=== PATIENT | female | born 1955 | race Caucasian/White ===

== ENCOUNTER 2019-10-17 10:50 | Inpatient (IN) | payer OTHER, MEDICAID ==
[~2019-10-17] VITALS: Ht 157.5 cm; Wt 103.4 kg
[2019-10-17 10:50] VITALS: BP_SYST 137
--- NOTE | 2019-10-17 10:50 | NUR ---
BROUGHT IN BY BLS AND PLACED IN BED #2 AND TRIAGED. REPORT GIVEN TO JORGE
--- NOTE | 2019-10-17 11:00 | NUR ---
Patient is awake, alert, and oriented x4. Patient reports she was feeling hypoglycemic earlier today and called 911. Patient was given glucose in the field and now feels better, her only complaint is that she feels drunk, denies nausea and pain.
--- NOTE | 2019-10-17 11:05 | NUR ---
ER Dr. Greenberg at bedside examining patient.
[2019-10-17 11:32] LABS: HEMATOCRIT 35.4 % (36-48); HEMOGLOBIN 11.4 g/dL (12.0-16.0); MEAN CORPUSCULAR HEMOGLOBIN 28 pg (27-31); MEAN CORPUSCULAR HGB CONC 32 % (32-36); MEAN CORPUSCULAR VOLUME 87 fL (79.0-98.0); PLATELET COUNT (AUTO) 140 K/uL (130-430); RED BLOOD CELL COUNT(AUTO) 4.09 MIL/uL (4.2-6.2); RED CELL DISTRIBUTION WIDTH 14.4 % (9.0-15.0)
[2019-10-17 11:44] LABS: CALCIUM 8.1 mg/dL (8.4-11.0); CREATININE 3.98 mg/dL (0.55-1.30); POTASSIUM 3.8 mmol/L (3.5-5.1)
[2019-10-17 11:49] LABS: ATYPICAL LYMPHOCYTES % 0 % (0-0); BAND % (MANUAL) 0 % (0-6); LYMPHOCYTES % (MANUAL) 31 % (20-46); MONOCYTES % (MANUAL) 10 % (0-11)
[2019-10-17 11:50] LABS: BASOPHILS % (MANUAL) 0 % (0-2); EOSINOPHILS % (MANUAL) 1 % (0-7)
--- NOTE | 2019-10-17 11:55 | NUR ---
Accucheck 159
[2019-10-17 12:00] LABS: ALBUMIN 2.6 g/dL (3.4-4.8); TOTAL BILIRUBIN 0.2 mg/dL (0.0-1.0)
--- NOTE | 2019-10-17 12:07 | NUR ---
Pt taken to CT
[2019-10-17] MEDS ORDERED: CYCL-10 PO (15:51)
[2019-10-17] MEDS ORDERED: HYDR100T25 PO (15:51)
[2019-10-17] MEDS ORDERED: METO-290 PO (15:51)
[2019-10-17] MEDS ORDERED: OMEP20CA11 PO (15:51)
[2019-10-17] MEDS ORDERED: FERR325T30 PO (15:51)
[2019-10-17] MEDS ORDERED: DIPH25CA83 PO (15:51)
[2019-10-17] MEDS ORDERED: ACET-284 PO (15:51)
[2019-10-17] MEDS ORDERED: LEVO25TA7 PO (15:51)
[2019-10-17] MEDS ORDERED: SSREG SUBCUT (15:51)
[2019-10-17] MEDS ORDERED: INSU100V9 SQ ×2 (15:51)
[2019-10-17] MEDS ORDERED: GLIP10TA11 PO (15:51)
[2019-10-17] MEDS ORDERED: CAT.1 PO (15:51)
[2019-10-17] MEDS ORDERED: DOCU250C14 PO (15:51)
[2019-10-17] MEDS ORDERED: NOR10 PO (15:51)
[2019-10-17] MEDS ORDERED: CALC-1263 PO (15:51)
[2019-10-17] MEDS ORDERED: TRAM100T34 PO (15:51)
[2019-10-17] MEDS ORDERED: LORA-258 PO (15:51)
[2019-10-17] MEDS ORDERED: VIS25 PO (15:51)
[2019-10-17] MEDS ORDERED: FENO48TA4 PO (15:51)
[2019-10-17] MEDS ORDERED: GABA-531 PO (15:51)
[2019-10-17] MEDS ORDERED: ALEN10TA7 PO (15:51)
--- NOTE | 2019-10-17 15:51 | NUR ---
Medication reconciliation completed with information provided by [facility]. Any prior medication reconciliation on file was reviewed and corrected.
--- NOTE | 2019-10-17 15:57 | NUR ---
Patient will be admitted to care of Dr. Baker. Admitted to telemetry unit. Waiting for room assignment. Belongings list completed. Complete and up to date summary report printed. SBAR report to be given at bedside with opportunity for questions.
[2019-10-17] MEDS ORDERED: NACL 0.9% 1,000 ML IV ONE (16:00)
--- NOTE | 2019-10-17 16:35 | NUR ---
Transfer to [facility] via ACLS protocol. Licensed nurse present. IV present no signs or symptoms of infiltration.
[2019-10-17 16:36] VITALS: BP_SYST 155
--- NOTE | 2019-10-17 16:36 | NUR ---
Admission: Received from ER on a gurney with the diagnosis of Elevated troponin and Hypoglycemia. Patient stated she feels weak to ambulate from gurney to bed. Oriented to room, call light within reach.
--- NOTE | 2019-10-17 16:38 | NUR ---
CONSULTATION PAGED REASON FOR CONSULTATION:HYPOGLYCEMIA WAS CONSULT CALLED?Y PERSON WHO WAS NOTIFIED:GABBI CONSULTING PHYSICIAN:EDIE TURK GAS CUTTER SPECIALTY:NEPHROLOGY GAS CUTTER PHONE NUMBER:[phone] ORDERING PHYSICIAN:MARLY BURNETTE
--- NOTE | 2019-10-17 16:40 | NUR ---
CONSULTATION PAGED REASON FOR CONSULTATION:ELEVATED TROPONIN WAS CONSULT CALLED?Y PERSON WHO WAS NOTIFIED:INA CONSULTING PHYSICIAN:CATHY BURNETTE MUSIC ORCHESTRATOR SPECIALTY:CARDIO MUSIC ORCHESTRATOR PHONE NUMBER:[phone] ORDERING PHYSICIAN:MARLY BURNETTE
--- NOTE | 2019-10-17 17:00 | NUR ---
INITIAL NOTE INITIAL NOTE RECEIVED PT IN BED, NO S/S OF DISTRESS OR SOB NOTED, PT HAS NO C/O PAIN AT THIS TIME, PT IN STABLE CONDITION, PT AAOX4, VERBAL. BED AT LOWEST POSITION, CALL LIGHT WITHIN REACH, WILL CONTINUE TO MONITOR PT FOR ANY CHANGES. FALL AND SAFETY PRECAUTIONS IN PLACE. PT HAS AN IV CATHETER, FLUSHES AND PATENT, SALINE LOCK.
[2019-10-17] MEDS ORDERED: NACL 0.9% 1,000 ML IV SCH (17:18)
[2019-10-17] MEDS ORDERED: ACETAMINOPHEN 325 MG TABLET PO PRN ×2 (17:30→21:15)
[2019-10-17] MEDS ORDERED: INSULIN REGULAR, HUMAN 100 UNITS/ML, 10 ML VIAL (humuLIN R) SUBCUT PRN (17:30)
[2019-10-17] MEDS ORDERED: amLODIPine BESYLATE 10 MG TABLET PO ONE (17:30)
[2019-10-17] MEDS ORDERED: ZOLPIDEM TARTRATE 5 MG TABLET PO PRN (17:30)
[2019-10-17] MEDS ORDERED: D5W 1,000 ML IV PRN ×2 (17:49→21:09)
[2019-10-17] MEDS ORDERED: DEXTROSE 50% JECT 50 ML DISP.SYRIN IVP PRN ×2 (18:00→21:15)
[2019-10-17] MEDS ORDERED: GLUCOSE 15 GM GEL (in 37.5 GM TUBE) PO PRN ×2 (18:00→21:15)
--- NOTE | 2019-10-17 18:00 | NUR ---
BLOOD GLUCOSE PATIENT'S BLOOD GLUCOSE WAS 31, RECHECKED AT IT WAS 31, ATTEMPTED TO ADMINISTER D50 IV PER ORDER, PATIENT'S IV DID NOT FLUSH, GAVE PT ORANGE JUICE, 1 CUP. ATTEMPTING TO INSERT IV CATHETER BUT NOT SUCCESSFUL AFTER 4 ATTEMPTS. UNABLE TO ADMINISTER D50 PER ORDER. PT ASYMPTOMATIC, NO DIZZINESS OR ALOC.
[2019-10-17] MEDS ORDERED: DEXTROSE 50% JECT 50 ML DISP.SYRIN ONE (18:06)
--- NOTE | 2019-10-17 18:13 | NUR ---
RECHECKED BLOOD GLUCOSE RECHECKED BLOOD GLUCOSE AFTER OJ ADMINISTRATION ORALLY SINCE PT IS AWAKE AND ORIENTED X4, VERBAL, ASYMPTOMATIC, PATIENT'S BLOOD GLUCOSE WAS 58, CHARGE NURSE AT BEDSIDE ATTEMPTING TO INSERT IV CATHETER TO ADMINISTER D50. WILL CONTINUE TO MONITOR PT FOR ANY CHANGES.
--- NOTE | 2019-10-17 18:19 | NUR ---
D5 ADMINISTERED D5 IVP ORDERED, ATTEMPTED IV CATHETER 6 TIMES, THREE DIFFERENT NURSES, A RIGHT HAND 22 GAUGE WAS INSERTED, ASEPTIC TECHNIQUE USED, PT TOLERATED, FLUSHES AND HAS BLOOD RETURN, WILL RECHECK SUGAR IN 15 MINUTES, PT IS EATING DINNER AND CONTINUES TO BE ASYMPTOMATIC. CALLED, DR FLORENTINO TO NOTIFY, AWAITING CALL BACK.
--- NOTE | 2019-10-17 18:35 | NUR ---
RECHECKED BLOOD GLUCOSE PATIENTS SUGAR WAS 140, PT EATING DINNER ASYMPTOMATIC, SPOKE WITH DR FLORENTINO, NEW ORDERS GIVEN, WILL CONTINUE TO MONITOR PT FOR ANY CHANGES.
--- NOTE | 2019-10-17 18:53 | NUR ---
CLOSING NOTE PT IN BED, NO S/S OF DISTRESS OR SOB NOTED, PT HAS NO C/O PAIN AT THIS TIME, PT IN STABLE CONDITION, PT AAOX4, VERBAL. BED AT LOWEST POSITION, CALL LIGHT WITHIN REACH, WILL ENDORSE CARE OF PT TO INCOMING NURSE. FALL AND SAFETY PRECAUTIONS IN PLACE. PT HAS AN IV CATHETER, FLUSHES AND PATENT, RUNNING IV FLUIDS ORDERED. PT NOT HYPOGLYCEMIC, NO SIGNS AND SYMPTOMS NOTED.
--- NOTE | 2019-10-17 19:16 | NUR ---
MD CALL DR CHADD CUENCA, AWAITING CALL BACK. TO NOTIFY OF THAT PT NEEDS PARAMETER FOR HYDRALAZINE.
--- NOTE | 2019-10-17 19:20 | NUR ---
Opening Note Received report from yue RN, patient sitting up in bed, A/Ox4, even and unlabored breathing on room air, no signs of acute distress, walker at bedside, IV to right hand 22g is infusing fluids, patent/benign, patient is able to ambulate, safety and fall precautions in place, patient refused bed alarm despite education, will reinforce education regarding bed alarm system and safety, bed locked and in lowest position, two side rails up, call light with patient will continue to monitor.
[2019-10-17 20:00] VITALS: BP_SYST 133
--- NOTE | 2019-10-17 20:02 | NUR ---
Dr. Becerra: Dr. Becerra called back at this time, spoke with MD regarding Apresoline 100 MG PO BID order, parameters received, verified by read-back. Changes to order made accordingly by RN, after-hours pharmacy made aware.
[2019-10-17] MEDS: D5/0.45 NS 1,000 ML IV SCH (20:07)
[2019-10-17] MEDS ORDERED: hydrALAZINE HCL 25 MG TABLET PO SCH (21:00)
[2019-10-17] MEDS ORDERED: CYCLOBENZAPRINE HCL 10 MG TABLET (FLEXERIL) PO PRN (21:15)
[2019-10-17] MEDS ORDERED: cloNIDine HCL 0.1 MG TABLET PO PRN (21:15)
[2019-10-17] MEDS ORDERED: DIPHENHYDRAMINE HCL 25 MG CAPSULE PO PRN (21:15)
[2019-10-17] MEDS ORDERED: LORazepam 2 MG/ML VIAL IVP PRN (21:15)
[2019-10-17] MEDS ORDERED: ACETAMINOPHEN 500 MG TABLET PO PRN (21:15)
[2019-10-17] MEDS ORDERED: LORazepam 1 MG TABLET PO PRN (21:15)
[2019-10-17] MEDS ORDERED: HYDROcodone/ACETAMIN 5-325 MG TAB (NORCO/ VICODIN) PO PRN (21:15)
--- NOTE | 2019-10-17 21:35 | NUR ---
Dr. Arnaldo Baker: Spoke with Dr. Arnaldo Baker regarding troponin draw orders. Per MD, troponin for today is to be drawn at ordered time, and another troponin is to be drawn 8 hours after. Verified by read-back, RN to make changes to orders. Lab was made aware.
[2019-10-17] MEDS: INSULIN GLARGINE 100 UNITS/ML 10 ML VIAL SQ SCH (22:00)
--- NOTE | 2019-10-17 22:40 | NUR ---
CONSULT: CONSULT CALLED FOR DR. CATHY MORGAN I SPOKE WITH KEIRA WALL REASON FOR CONSULT: ELEVATED TROPONIN REQUESTING CONSULT: DR. CATHY LUKE RETAIL SALES ASSOCIATE SEASONAL PHONE NUMBER: [phone]
--- NOTE | 2019-10-17 23:10 | NUR ---
Dr. Keyoan Baker Spoke with Dr. Arnaldo Baker regarding critical troponin of 0.098. Stated to notify cardio consult. Spoke with Dr. Keyona Baker regarding critical lab value. Dr. Keyona Baker stated critical troponin of 0.098 was fine and to call only if the next troponin lab value is greater than 1 or elevated by 10%. Stated not to call if the next troponin is decreasing. No new orders.
[2019-10-18 00:40] VITALS: BP_SYST 130
--- NOTE | 2019-10-18 04:30 | NUR ---
Assisted to Restroom Assisted patient to restroom and back to bed safely, steady gait with walker, IV site intact, patent/benign, patient tolerated well, safety and fall precautions in place, call light with patient, will continue to monitor. Addendum: 10/18/19 at 0655 by Kaitlyn Frank RN Patient had a BM, reported no difficulty.
[2019-10-18] MEDS: LEVOTHYROXINE SODIUM 0.025 MG TABLET PO SCH (06:17)
[2019-10-18] MEDS: D5/0.45 NS 1,000 ML IV SCH ×2 (06:19→14:37)
[2019-10-18 06:32] LABS: BASOPHILS % (AUTO) 0.9 % (0.0-2.0); EOSINOPHILS # (AUTO) 0.2 K/uL (0.0-0.4); EOSINOPHILS % (AUTO) 3.8 % (0.0-4.0); HEMATOCRIT 30.9 % (36-48); LYMPHOCYTES # (AUTO) 1.8 K/uL (1.0-5.5); LYMPHOCYTES % (AUTO) 34.1 % (20.5-51.5); MEAN CORPUSCULAR HEMOGLOBIN 28 pg (27-31); MEAN CORPUSCULAR HGB CONC 33 % (32-36); MEAN CORPUSCULAR VOLUME 86 fL (79.0-98.0); MONOCYTES # (AUTO) 0.6 K/uL (0.0-1.0); NEUTROPHILS # (AUTO) 2.6 K/uL (1.8-7.7); NEUTROPHILS % (AUTO) 50.2 % (40.0-70.0); PLATELET COUNT (AUTO) 137 K/uL (130-430); RED BLOOD CELL COUNT(AUTO) 3.58 MIL/uL (4.2-6.2); RED CELL DISTRIBUTION WIDTH 14.7 % (9.0-15.0); WHITE BLOOD COUNT (AUTO) 5.2 K/uL (4.8-10.8)
[2019-10-18 06:38] LABS: ALBUMIN 2.2 g/dL (3.4-4.8); CALCIUM 7.7 mg/dL (8.4-11.0); CREATININE 4.12 mg/dL (0.55-1.30); PHOSPHORUS 3.7 mg/dL (2.7-4.5); POTASSIUM 4.4 mmol/L (3.5-5.1); TOTAL BILIRUBIN 0.3 mg/dL (0.0-1.0)
--- NOTE | 2019-10-18 06:59 | NUR ---
Closing Note Received report from dayshift RN, patient resting in bed, tolerating room air, no signs of acute distress, walker at bedside, IV to right hand 22g is infusing fluids, patent/benign, patient's gait is steady, safety and fall precautions in place, patient refused bed alarm despite education, reinforced education, bed locked and in lowest position, two side rails up, call light with patient, will endorse care to dayshift RN..
[2019-10-18] MEDS ORDERED: OMEPRAZOLE Non-Formulary 20 MG CAPSULE.DR PO SCH (07:00)
[2019-10-18] MEDS ORDERED: LEVOTHYROXINE SODIUM 0.025 MG TABLET PO SCH (07:00)
--- NOTE | 2019-10-18 07:32 | NUR ---
Opening Note Received plan of care via sbar from endorsing nurse Kaitlyn HERNÁNDEZ. Completed patient round.
--- NOTE | 2019-10-18 07:45 | NUR ---
Per emar 0700 synthroid is due. Per pixes med was pulled at 0630. Spoke to charge nurse and was advised to ask the patient if she had already taken the medication. Spoke to patient and was told that she had already taken her medication this morning.
--- NOTE | 2019-10-18 08:05 | NUR ---
Received call from lab. Critical value reported of Troponin 0.120.
--- NOTE | 2019-10-18 08:25 | NUR ---
Paged Dr. Mu Baker to report value.
[2019-10-18] MEDS: traMADol HCL HCL 50 MG TABLET (ULTRAM) PO SCH (09:00)
[2019-10-18] MEDS ORDERED: amLODIPine BESYLATE 10 MG TABLET PO SCH (09:00)
--- NOTE | 2019-10-18 09:00 | NUR ---
Provided critical value result for troponin to Arnaldo Baker at bedside. No new orders.
[2019-10-18] MEDS: amLODIPine BESYLATE 10 MG TABLET PO SCH (09:03)
[2019-10-18] MEDS: DOCUSATE SODIUM 250 MG CAPSULE PO SCH ×2 (09:03→21:29)
[2019-10-18] MEDS: FENOFIBRATE NANOCRYSTALLIZED 48 MG TABLET (TRICOR) PO SCH (09:03)
[2019-10-18] MEDS: hydrALAZINE HCL 25 MG TABLET PO SCH ×2 (09:03→21:28)
[2019-10-18] MEDS: CALCIUM CARBONATE/VITAMIN D3 1 TAB TABLET PO SCH ×2 (09:04→21:28)
[2019-10-18] MEDS: METOCLOPRAMIDE HCL 10 MG TABLET PO SCH ×3 (09:04→21:28)
[2019-10-18] MEDS: FERROUS SULFATE 325 MG TABLET.DR PO SCH ×3 (09:06→21:29)
[2019-10-18] MEDS: PANTOPRAZOLE SODIUM 40 MG TAB PO SCH (09:06)
[2019-10-18] MEDS: GABAPENTIN 300 MG CAPSULE PO SCH ×2 (09:06→21:28)
[2019-10-18] MEDS: INSULIN REGULAR, HUMAN 100 UNITS/ML, 10 ML VIAL (humuLIN R) SUBCUT PRN ×3 (10:43→18:25)
--- NOTE | 2019-10-18 11:00 | NUR ---
Provided troponin results to Keyona Baker. No new orders.
--- NOTE | 2019-10-18 11:59 | NUR ---
SS Note: ENVIRONMENTAL RESEARCH SCIENTIST was referred by CM to see pt for DCP. ENVIRONMENTAL RESEARCH SCIENTIST met with patient at bedside. Pt is Filipino speaking only; blue phone used and spoke with mine exploration engineer Kristen ID#[id number]. Pt is alert and oriented. Pt was cooperative but appeared to be disheveled with depressed mood, soft speech and sad affect. Pt is a 64 y/o single female who came from [facility]. Pt states she has been living at [facility] for 5 years now. Pt states she is dependent on her ADL's but utilizes a walker and wheelchair to ambulate and to get around the community. Pt states [facility] takes her to/from MD offices. Pt states she does not have any support system as all her family lives in [place]. Pt states she has a friend Vanita (WARD) as her only friend here but is currently in [facility], coming back on 10/25. Pt denies any history or current depression or anxiety and denies substance use/abuse. Pt states she has an advanced directive and [facility] has a copy. Pt is not on dialysis and does not have IHSS. Pt is receiving SSI, unknown amount. Pt states she does not have any SNF/HHS preference if indicated for discharge.No further SS needs identified, but will remain available for support and resources.
[2019-10-18 12:10] VITALS: BP_SYST 146
--- NOTE | 2019-10-18 15:00 | NUR ---
PATIENT RESTING: Patient resting quietly. No acute distress noted. Vital signs within normal range.
--- NOTE | 2019-10-18 15:57 | NUR ---
CONSULTATION PAGED REASON FOR CONSULTATION:CKD STAGE 3 WAS CONSULT CALLED?Y PERSON WHO WAS NOTIFIED:LISA CONSULTING PHYSICIAN:CHELSI MATHUR BUILDING CERTIFIER SPECIALTY:NEPHRO BUILDING CERTIFIER PHONE NUMBER:[phone] REQUESTING PHYSICIAN:EDIE TURK
--- NOTE | 2019-10-18 16:01 | NUR ---
CONSULTATION PAGED REASON FOR CONSULTATION:NEEDS PERMCATH WAS CONSULT CALLED?Y PERSON WHO WAS NOTIFIED:NICHOL CONSULTING PHYSICIAN:REINIER ROSADO EQUIPMENT SERVICE ASSOCIATE SPECIALTY:SURGEON EQUIPMENT SERVICE ASSOCIATE PHONE NUMBER:[phone] REQUESTING PHYSICIAN:EDIE TURK
[2019-10-18 16:10] VITALS: BP_SYST 137
[2019-10-18] MEDS ORDERED: ALENDRONATE SODIUM 10 MG TABLET (FOSAMAX) PO SCH (17:00)
--- NOTE | 2019-10-18 19:26 | NUR ---
Closing Note Provided plan of care via sbar to receiving Nurse RN. Completed patient round.
--- NOTE | 2019-10-18 20:00 | NUR ---
RECIEVED REPORT @ START OF SHIFT, PATIENT A/O/X/4, RESPIRATIONS EVEN AND UNLABORED, ROOM AIR, ABDOMEN DISTENDED, 24HR URINE COLLECTION IN PROGRESS TO BE COMPLETED @ MIDNIGHT, AMBULATES TO BSC WITH HELP OF WALKER,D5 1/2 NS INFUSING @ 100 ML/HR IN RIGHT HAND, GENERALIZED PITTING 1+-2+ EDEMA IN ALL EXTREMITIES, SLOVENIAN SPEAKING BUT UNDERSTANDS AND SPEAKS SOME ZAMBIAN, ACCUCHECK DONE AND RESULTS = 154 HS LANTUS 15 UNITS GIVEN ORDERED. DENIES PAIN, RESTING QUIETLY IN BED WITH EYES OPEN WATCHING TV.SR'S UP X'S 2, CALL LIGHT WITHIN REACH AND BED IN LOW POSITION.
[2019-10-18 20:15] VITALS: BP_SYST 147
--- NOTE | 2019-10-18 20:19 | NUR ---
f/u on Dr. Kaur consult Called to f/u on consult w/ Dr. Kaur [phone] s/w Cheri RE Permacath placement
--- NOTE | 2019-10-18 20:32 | NUR ---
Paged Dr. Johnson [phone] s/w Chinyere
--- NOTE | 2019-10-18 20:37 | NUR ---
Paged Vt [phone] s/w Cheri
--- NOTE | 2019-10-18 20:45 | NUR ---
SPOKE WITH DR. FITCH REGARDING CONSULT FROM DR. PIERSON TO DO A DIALYSIS ACCESS PORT FOR PATIENT TO RECIEVE DIALYSIS. DR. PIERSON STATES NOT AN EMERGENCY IF SO HE WOULD HAVE SPOKE WITH DR. FITCH HIMSELF, THEREFORE COULD HE DO IT WHEN EVER POSSIBLE. DR FITCH STATES HE WILL COME SEE PATIENT TOMORROW EVENING
[2019-10-18] MEDS: INSULIN GLARGINE 100 UNITS/ML 10 ML VIAL SQ SCH (21:45)
[2019-10-19] VITALS: BP_SYST 136
--- NOTE | 2019-10-19 03:39 | NUR ---
BLOOD GLUCOSE RESULTS = 49, PATUIENT A/O/X/4, VERBALLY RESPONSIVE, ASYMPTOMATIC, TOLERATED 240 ML OF ORANGE JUICE WITH 2 SUGAR PACKETS BLOOD SUGAR RETAKEN IN 5 MINUTES = 63, BLOOD SUGAR RETAKEN IN ANOTHER FIVE MINUTES RESULTS = 91, PATIENT RESTING QUIETLY IN BED IN NO ACUTE DISTRESS.
[2019-10-19 04:00] VITALS: BP_SYST 142
[2019-10-19] MEDS: LEVOTHYROXINE SODIUM 0.025 MG TABLET PO SCH (06:24)
--- NOTE | 2019-10-19 06:44 | NUR ---
BLOOD GLUCOSE RESULTS FOR 0700 = 106, PATIENT RESTING QUIETLY IN BED WITH EYES CLOSED, EASILY AROUSED,M VERBALLY RESPONSIVE,D51/2NS INFUSING IN RIGHT HAND @ 100 ML/HR,DENIES PAIN, WILL CONTINUE TO MONITOR.
--- NOTE | 2019-10-19 07:39 | NUR ---
Opening Note received bedside SBAR report from breast buffer RN, patient resting in bed, respirations even and unlabored on room air, no acute distress noted, educated patient on use of call light and asked to call for assistance, patient verbalized understanding, call light in reach, bed in low and locked position, bed alarm on.
[2019-10-19 07:46] LABS: BASOPHILS # (AUTO) 0.1 K/uL (0.0-0.2); BASOPHILS % (AUTO) 2.5 % (0.0-2.0); EOSINOPHILS # (AUTO) 0.2 K/uL (0.0-0.4); EOSINOPHILS % (AUTO) 4.3 % (0.0-4.0); HEMATOCRIT 32.2 % (36-48); HEMOGLOBIN 10.6 g/dL (12.0-16.0); LYMPHOCYTES # (AUTO) 1.9 K/uL (1.0-5.5); LYMPHOCYTES % (AUTO) 36.4 % (20.5-51.5); MEAN CORPUSCULAR HEMOGLOBIN 28 pg (27-31); MEAN CORPUSCULAR HGB CONC 33 % (32-36); MEAN CORPUSCULAR VOLUME 86 fL (79.0-98.0); MONOCYTES # (AUTO) 0.6 K/uL (0.0-1.0); MONOCYTES % (AUTO) 11.8 % (1.7-9.3); NEUTROPHILS # (AUTO) 2.3 K/uL (1.8-7.7); PLATELET COUNT (AUTO) 146 K/uL (130-430); RED BLOOD CELL COUNT(AUTO) 3.74 MIL/uL (4.2-6.2); RED CELL DISTRIBUTION WIDTH 14.4 % (9.0-15.0); WHITE BLOOD COUNT (AUTO) 5.2 K/uL (4.8-10.8)
[2019-10-19 08:00] VITALS: BP_SYST 146
[2019-10-19 08:05] LABS: CREATININE 3.93 mg/dL (0.55-1.30); PHOSPHORUS 3.9 mg/dL (2.7-4.5); POTASSIUM 4.2 mmol/L (3.5-5.1); THYROID STIMULATING HORMONE 5.1 uIu/mL (0.36-3.74)
[2019-10-19] MEDS: GABAPENTIN 300 MG CAPSULE PO SCH (08:58)
[2019-10-19] MEDS: CALCIUM CARBONATE/VITAMIN D3 1 TAB TABLET PO SCH (08:59)
[2019-10-19] MEDS: FENOFIBRATE NANOCRYSTALLIZED 48 MG TABLET (TRICOR) PO SCH (08:59)
[2019-10-19] MEDS: hydrALAZINE HCL 25 MG TABLET PO SCH (08:59)
[2019-10-19] MEDS: METOCLOPRAMIDE HCL 10 MG TABLET PO SCH ×2 (08:59→15:08)
[2019-10-19] MEDS: amLODIPine BESYLATE 10 MG TABLET PO SCH (09:00)
[2019-10-19] MEDS: PANTOPRAZOLE SODIUM 40 MG TAB PO SCH (09:00)
[2019-10-19] MEDS: FERROUS SULFATE 325 MG TABLET.DR PO SCH ×2 (09:00→15:08)
[2019-10-19] MEDS: DOCUSATE SODIUM 250 MG CAPSULE PO SCH (09:00)
[2019-10-19] MEDS: traMADol HCL HCL 50 MG TABLET (ULTRAM) PO SCH (09:01)
--- NOTE | 2019-10-19 09:53 | NUR ---
RN Rounds patient resting in bed, respirations even and unlabored on room air, patient reports pain is controlled, no acute distress noted.
--- NOTE | 2019-10-19 11:56 | NUR ---
Bedside Commode patient transferred to bedside commode, voided x1, patient transferred back to bed, minimal assistance required, patient resting in bed.
[2019-10-19 12:15] VITALS: BP_SYST 132
[2019-10-19 13:00] LABS: CREATININE 3.93 mg/dL (0.55-1.30)
[2019-10-19 13:02] LABS: CREATININE,URINE 46.5 MG/DL (30-125)
--- NOTE | 2019-10-19 14:09 | NUR ---
RN Rounds patient resting in bed, respirations even and unlabored on room air, no acute distress noted, patient reports pain is controlled.
[2019-10-19 14:34] LABS: TPROTEIN U,24HR 8890.1 mg/24HR (0-130)
[2019-10-19 16:05] VITALS: BP_SYST 138
--- NOTE | 2019-10-19 16:27 | NUR ---
Physician Rounds Dr. Flynn at bedside speaking with patient regarding placement of corina catheter, senior advisor used ([facility] clinical support specialist #[id number]).
[2019-10-19] MEDS ORDERED: HYDROmorphone 1 MG INJ. 1 MG/ML AMPUL IM ONE (17:00)
[2019-10-19] MEDS ORDERED: HYDROmorphone 1 MG INJ. 1 MG/ML AMPUL IVP ONE (17:00)
[2019-10-19] MEDS ORDERED: HEPARIN SODIUM,PORCINE 5000 UNITS/ML VIAL ONE ×2 (17:22→23:04)
--- NOTE | 2019-10-19 17:50 | NUR ---
Corina Catheter Dr. Flynn at bedside for placement of corina catheter, corina catheter placed to right jugular by Dr. Flynn, patient tolerated well, chest x-ray completed, sterile dressing in place, no bleeding, gown and linen changed, patient reports pain is controlled, no acute distress noted.
--- NOTE | 2019-10-19 18:10 | NUR ---
RN Rounds patient sitting up in bed eating dinner, patient tolerating well, no acute distress noted.
--- NOTE | 2019-10-19 18:24 | NUR ---
Spoke with PICC line RN spoke with PICC line RN, Andrew, regarding placement of midline, per Andrew he will be here this evening for placement of midline.
[2019-10-19] MEDS ORDERED: HEPARIN SODIUM,PORCINE 5000 UNITS/ML VIAL MC ONE (18:30)
--- NOTE | 2019-10-19 19:22 | NUR ---
Closing Note bedside SBAR report given to receiving RN, patient resting in bed, corina catheter to right jugular clean, dry, and intact, called radiology regarding chest x-ray for placement of corina catheter, per radiology they will send results now, called distribution warehouse manager regarding hemodialysis order, informed distribution warehouse manager that shift commander RN will follow up for hemodialysis once corina catheter has been cleared for use, educated patient on use of call light and asked to call for assistance, patient verbalized understanding, call light in reach, bed in low and locked position, bed alarm on, care endorsed to shift commander RN.
[2019-10-19] MEDS ORDERED: HEPARIN SODIUM,PORCINE 5000 UNITS/ML VIAL IVP ONE (22:45)
--- NOTE | 2019-10-19 23:00 | NUR ---
Andrew, PICC RN, concluded no need for midline since pt has three (one central) ports on her RIJ Rikki Cath. Andrew spoke w Second Language Tutor.
[2019-10-20] VITALS (8 sets, daily range): BP systolic 130–166
[2019-10-20] MEDS: HYDROcodone/ACETAMIN 10-325 MG TAB PO PRN ×2 (00:09→01:05)
[2019-10-20] MEDS: hydrALAZINE HCL 25 MG TABLET PO SCH ×3 (00:10→21:51)
[2019-10-20] MEDS: GABAPENTIN 300 MG CAPSULE PO SCH ×3 (00:11→21:50)
[2019-10-20] MEDS: DOCUSATE SODIUM 250 MG CAPSULE PO SCH ×3 (00:12→21:50)
[2019-10-20] MEDS: CALCIUM CARBONATE/VITAMIN D3 1 TAB TABLET PO SCH ×3 (00:13→21:50)
[2019-10-20] MEDS: FERROUS SULFATE 325 MG TABLET.DR PO SCH ×4 (00:13→21:50)
[2019-10-20] MEDS: METOCLOPRAMIDE HCL 10 MG TABLET PO SCH ×4 (00:13→21:50)
[2019-10-20] MEDS: INSULIN REGULAR, HUMAN 100 UNITS/ML, 10 ML VIAL (humuLIN R) SUBCUT PRN ×2 (00:50→18:26)
[2019-10-20] MEDS: INSULIN GLARGINE 100 UNITS/ML 10 ML VIAL SQ SCH ×2 (00:53→21:00)
[2019-10-20] MEDS: ONDANSETRON HCL 4 MG/2 ML VIAL IVP PRN ×3 (00:56→21:52)
--- NOTE | 2019-10-20 01:00 | NUR ---
Consent for HD given by pt near beginning of shift. CXR report showed pt clear bilat. Dr. Sorensen cleared pt for using KATIE Rikki for HD. HD performed by HDRN. Andrew PICC RN, saw pt; does not recommend PICC/Midline. (he spoke w Dr. Sorensen on this matter). Net output from HD = -2.5L Pt medicated x 1 for pain after procedure. Pt given routine apresoline d/t fUM=646.
--- NOTE | 2019-10-20 07:21 | NUR ---
Opening Note received bedside SBAR report from educational technician RN, patient resting in bed, respirations even and unlabored on room air, no acute distress noted, educated patient on use of call light and asked to call for assistance, patient verbalized understanding, call light in reach, educated patient on use of bed alarm for patient safety, patient refusing bed alarm, bed in low and locked position.
[2019-10-20] MEDS: LEVOTHYROXINE SODIUM 0.025 MG TABLET PO SCH (07:35)
[2019-10-20 07:47] LABS: CALCIUM 7.8 mg/dL (8.4-11.0); CREATININE 3.27 mg/dL (0.55-1.30); PHOSPHORUS 3.6 mg/dL (2.7-4.5); POTASSIUM 4.4 mmol/L (3.5-5.1)
[2019-10-20 07:53] LABS: BASOPHILS # (AUTO) 0.1 K/uL (0.0-0.2); BASOPHILS % (AUTO) 0.8 % (0.0-2.0); EOSINOPHILS # (AUTO) 0.1 K/uL (0.0-0.4); EOSINOPHILS % (AUTO) 1.5 % (0.0-4.0); HEMATOCRIT 32.1 % (36-48); HEMOGLOBIN 10.6 g/dL (12.0-16.0); LYMPHOCYTES # (AUTO) 1.6 K/uL (1.0-5.5); LYMPHOCYTES % (AUTO) 24.2 % (20.5-51.5); MEAN CORPUSCULAR HEMOGLOBIN 28 pg (27-31); MEAN CORPUSCULAR HGB CONC 33 % (32-36); MEAN CORPUSCULAR VOLUME 86 fL (79.0-98.0); MONOCYTES # (AUTO) 0.6 K/uL (0.0-1.0); MONOCYTES % (AUTO) 8.5 % (1.7-9.3); NEUTROPHILS # (AUTO) 4.3 K/uL (1.8-7.7); PLATELET COUNT (AUTO) 152 K/uL (130-430); RED BLOOD CELL COUNT(AUTO) 3.74 MIL/uL (4.2-6.2); RED CELL DISTRIBUTION WIDTH 14.4 % (9.0-15.0)
[2019-10-20 08:13] LABS: WHITE BLOOD COUNT (AUTO) 6.6 K/uL (4.8-10.8)
[2019-10-20] MEDS: FENOFIBRATE NANOCRYSTALLIZED 48 MG TABLET (TRICOR) PO SCH (08:21)
[2019-10-20] MEDS: PANTOPRAZOLE SODIUM 40 MG TAB PO SCH (08:21)
[2019-10-20] MEDS: traMADol HCL HCL 50 MG TABLET (ULTRAM) PO SCH (08:22)
[2019-10-20] MEDS: amLODIPine BESYLATE 10 MG TABLET PO SCH (08:23)
--- NOTE | 2019-10-20 09:50 | NUR ---
RN Rounds patient resting in bed, respirations even and unlabored on room air, patient reports pain is controlled, no acute distress noted.
--- NOTE | 2019-10-20 11:25 | NUR ---
RN Rounds patient resting in bed, no acute distress noted, respirations even and unlabored on room air, patient reports pain is controlled, no additional needs at this time.
--- NOTE | 2019-10-20 13:55 | NUR ---
RN Rounds patient resting in bed, respirations even and unlabored on room air, patient reports pain is controlled, corina catheter to right jugular clean, dry, and intact.
--- NOTE | 2019-10-20 14:44 | NUR ---
Blood Glucose blood glucose 174, educated patient on use and side effects of insulin per sliding scale, patient states that she does not want to eat right now, insulin held until patient resumes PO intake, patient resting in bed, no acute distress noted, respirations even and unlabored on room air.
--- NOTE | 2019-10-20 15:59 | NUR ---
Case mgt: Pt has new hemodialysis ordered. I requested nurse Baig to request Acute Detect Hepatitis Panel order from in the event that pt will need outpatient HD (Hep panel is requirement at the HD centers to initiate OP hemodialysis)
[2019-10-20] MEDS ORDERED: TUBERCULIN,PURIF.PROT.DERIV. 0.1 ML SYR ID ONE (16:45)
--- NOTE | 2019-10-20 17:08 | NUR ---
PPD Skin Test educated patient on purpose and procedure for PPD skin test, patient verbalized understanding, PPD skin test administered to left forearm, informed patient that PPD skin test is to be read in 48-72 hours, patient verbalized understanding.
--- NOTE | 2019-10-20 17:38 | NUR ---
Pain Management patient complaint of stomach pain, educated patient on use and side effects of PRN pain medications, patient refusing PRN pain mediations, patient states "it was lunch", patient denies any nausea, patient sitting up in bed eating dinner.
--- NOTE | 2019-10-20 19:27 | NUR ---
Closing Note bedside SBAR report given to receiving RN, patient resting in bed, respirations even and unlabored on room air, patient reports pain is controlled at this time, educated patient on use of call light and asked to call for assistance, patient verbalized understanding, call light in reach, educated patient on use of bed alarm for patient safety, patient refusing bed alarm, bed in low and locked position, care endorsed to [facility] shift lead RN.
--- NOTE | 2019-10-20 22:58 | NUR ---
Pt's HS Blood Sugar = 110. Pt refused Lantus insulin scheduled at 2200. Pt in good condition and in no distress.
--- NOTE | 2019-10-21 02:00 | NUR ---
Assumed care Received report. Patient resting in bed. No signs of distress noted. Breathing even and unlabored. No needs at this time. Call light with the patient. Safety precautions in place.
--- NOTE | 2019-10-21 02:45 | NUR ---
Accucheck 65 patient given apple juice. 15 minutes later, accucheck 89. Patient also given sandwich, per patient request. No other needs. Call light with the patient. Safety precautions in place.
--- NOTE | 2019-10-21 04:32 | NUR ---
Sleeping No signs of distress noted. Breathing even and unlabored. Call light with the patient. Safety precautions in place.
[2019-10-21] MEDS: LEVOTHYROXINE SODIUM 0.025 MG TABLET PO SCH (06:10)
--- NOTE | 2019-10-21 06:39 | NUR ---
Accucheck 63 patient given 2 apple juice with sugar. After 15 minutes went up to 73. Encouraged patient to eat, patient waiting for breakfast. Paging Dr. Baker for orders in regards to glipizide.
--- NOTE | 2019-10-21 06:58 | NUR ---
Closing notes Spoke to Dr. Baker, stated to hold Glucotrol for this morning. Patient is resting in bed. No signs of distress noted. Breathing even and unlabored. RIJ in place. No signs of hypoglycemia noted. Encouraged patient to eat breakfast. Patient to have hemodialysis today. All needs met throughout the shift. Call light with the patient. Safety precautions in place. Will endorse care to day shift RN.
[2019-10-21 07:30] LABS: BASOPHILS % (AUTO) 0.8 % (0.0-2.0); EOSINOPHILS # (AUTO) 0.2 K/uL (0.0-0.4); EOSINOPHILS % (AUTO) 3.9 % (0.0-4.0); HEMATOCRIT 29.5 % (36-48); HEMOGLOBIN 9.7 g/dL (12.0-16.0); LYMPHOCYTES # (AUTO) 2.1 K/uL (1.0-5.5); LYMPHOCYTES % (AUTO) 36.3 % (20.5-51.5); MEAN CORPUSCULAR HEMOGLOBIN 28 pg (27-31); MEAN CORPUSCULAR HGB CONC 33 % (32-36); MEAN CORPUSCULAR VOLUME 86 fL (79.0-98.0); MONOCYTES # (AUTO) 0.7 K/uL (0.0-1.0); MONOCYTES % (AUTO) 11.7 % (1.7-9.3); NEUTROPHILS # (AUTO) 2.8 K/uL (1.8-7.7); NEUTROPHILS % (AUTO) 47.3 % (40.0-70.0); PLATELET COUNT (AUTO) 128 K/uL (130-430); RED BLOOD CELL COUNT(AUTO) 3.42 MIL/uL (4.2-6.2); RED CELL DISTRIBUTION WIDTH 14.4 % (9.0-15.0); WHITE BLOOD COUNT (AUTO) 5.9 K/uL (4.8-10.8)
--- NOTE | 2019-10-21 07:38 | NUR ---
OPENING NOTE Patient ambulated to bathroom using walker and assisted back to bed. No acute distress. Denied of pain. Skin warm and dry to touch. RIJ intact, no bleeding noted. Discussed the safety issue, use call light when needs help, and plan of care, verbally understanding. Safety measure maintained. Call light within reached. Bed locked in low position, side rails up. Refused bed alarm, risk and benefit explained, verbally understanding. Will continue to monitor.
[2019-10-21 07:39] LABS: CALCIUM 7.9 mg/dL (8.4-11.0); CREATININE 3.73 mg/dL (0.55-1.30); POTASSIUM 4.3 mmol/L (3.5-5.1)
[2019-10-21 07:40] VITALS: BP_SYST 146
[2019-10-21 08:06] LABS: HEPATITIS A AB, IgM Negative (Negative); HEPATITIS B CORE AB, IgM Negative (Negative); HEPATITIS B SURFACE AG Negative (Negative)
[2019-10-21] MEDS: METOCLOPRAMIDE HCL 10 MG TABLET PO SCH ×3 (08:21→20:18)
[2019-10-21] MEDS: traMADol HCL HCL 50 MG TABLET (ULTRAM) PO SCH (08:21)
[2019-10-21] MEDS: PANTOPRAZOLE SODIUM 40 MG TAB PO SCH (08:21)
[2019-10-21] MEDS: GABAPENTIN 300 MG CAPSULE PO SCH ×2 (08:21→20:18)
[2019-10-21] MEDS: DOCUSATE SODIUM 250 MG CAPSULE PO SCH ×2 (08:21→20:18)
[2019-10-21] MEDS: hydrALAZINE HCL 25 MG TABLET PO SCH ×2 (08:23→20:18)
[2019-10-21] MEDS: amLODIPine BESYLATE 10 MG TABLET PO SCH (08:24)
[2019-10-21] MEDS: CALCIUM CARBONATE/VITAMIN D3 1 TAB TABLET PO SCH ×2 (08:24→20:18)
[2019-10-21] MEDS: FERROUS SULFATE 325 MG TABLET.DR PO SCH ×3 (08:24→20:18)
[2019-10-21] MEDS: FENOFIBRATE NANOCRYSTALLIZED 48 MG TABLET (TRICOR) PO SCH (08:24)
--- NOTE | 2019-10-21 08:32 | NUR ---
AM SCHEDULE MED GIVEN, TOLERATED WELL.
--- NOTE | 2019-10-21 11:17 | NUR ---
BS=98 No insulin needed per sliding scale as needed for BS=98. Patient resting on the bed. No acute distress. Safety measure maintained. Call light within reached. Continue to monitor.
[2019-10-21 11:30] VITALS: BP_SYST 139
--- NOTE | 2019-10-21 11:39 | NUR ---
DC Planning: Requesting RN Anna to get the dcp order for HD out patient set up.
--- NOTE | 2019-10-21 12:20 | NUR ---
HEMODIALYSIS STARTED, PATIENT IN STABLE CONDITION.
--- NOTE | 2019-10-21 12:36 | NUR ---
SEEN AND EXAMINED BY CHELSI SILVA WITH ORDER RECEIVED.
--- NOTE | 2019-10-21 14:57 | NUR ---
RECEIVED THE CALL FROM DR. ERWIN (SALES EFFECTIVENESS MANAGER FOR DR. FITCH), MAKE AWAKE DR. SAMUEL WITH THE ORDER CONVERT THE BEKAH CATHETER TO PERMA CATH PRIOR TO DISCHARGE.
--- NOTE | 2019-10-21 14:59 | NUR ---
HEMODIALYSIS COMPLETED WITH 3L OUT IN STABLE CONDITION, B/P=122/71.
[2019-10-21] MEDS: INSULIN REGULAR, HUMAN 100 UNITS/ML, 10 ML VIAL (humuLIN R) SUBCUT PRN ×2 (15:11→23:02)
--- NOTE | 2019-10-21 15:13 | NUR ---
LZ=676 Per sliding scale 2 units of Humulin R as orderer for PL=870 but patient refused insulin. Risk and benefit explained, verbally understanding. Will notify MD when making rounds.
[2019-10-21 16:00] VITALS: BP_SYST 129
--- NOTE | 2019-10-21 17:00 | NUR ---
ROUND Patient resting in the bed. No acute distress. RIJ Rikki cath intact, no bleeding noted, covered with dressing. Safety measure maintained. Call light within reached. Bed locked in low position, side rails up. Continue to monitor.
--- NOTE | 2019-10-21 18:07 | NUR ---
EB=167 No insulin coverage needed per sliding scale. Patient also refused Glipizide and stated that don't want the sugar low.
--- NOTE | 2019-10-21 18:25 | NUR ---
DR. MORGAN, MARLY Morgan seen and examined the patient. Reported to Dr. Morgan, patient PU=247 at 1500 and patient refused insulin, and YF=673 now and patient refused Glipizide and said that do not want the sugar low. Per Dr. Morgan that is fine.
--- NOTE | 2019-10-21 18:47 | NUR ---
CLOSING NOTE Patient resting in the bed. No acute distress. Denied of pain. Skin warm and dry to touch. RIJ Rikki catheter intact with clean and dry dressing, no bleeding noted. All needs met. Safety measure maintained. Call light within reached. Bed locked in low position, side rails up. Refused bed alarm, risk and benefit explained, verbally understanding. Will endorse to night nurse.
--- NOTE | 2019-10-21 19:53 | NUR ---
OPENING NOTES Pt and endorsement received from day shift nurse. Pt is AAOx4, lying in bed while watching tv. Pt on Rikki cath on right IJ. No complains of pain at this time. No signs of acute distress or SOB noted. Encouraged to use call light when needed. Safety precautions in place with 3 side rails up, wheels locked, bed alarm on and in lowest level. Call light with pt. Will continue to monitor.
[2019-10-21 20:16] VITALS: BP_SYST 133
[2019-10-21] MEDS: INSULIN GLARGINE 100 UNITS/ML 10 ML VIAL SQ SCH (20:20)
--- NOTE | 2019-10-21 20:20 | NUR ---
ROUNDS All due meds given and pt tolerated well. No complains of pain and no signs of acute distress or SOB noted. Safety precautions in place and call light with pt. Will continue to monitor.
--- NOTE | 2019-10-21 23:01 | NUR ---
ROUNDS Pt's FS blood glucose is 144mg/dl, no insulin given per protocol. No complains of pain and no signs of acute distress noted. Safety precautions in place and call light with pt. Will continue to monitor.
[2019-10-22] VITALS: BP_SYST 139
--- NOTE | 2019-10-22 02:05 | NUR ---
ROUNDS Pt is resting in bed with both eyes closed, with visible chest rise and fall with non-labored breathing noted. Pt is easily arousable. No complains of pain and no signs of acute distress. No needs at this time. Safety precautions in place and call light with pt. Will continue to monitor.
[2019-10-22] MEDS: INSULIN REGULAR, HUMAN 100 UNITS/ML, 10 ML VIAL (humuLIN R) SUBCUT PRN ×3 (02:48→22:43)
--- NOTE | 2019-10-22 04:47 | NUR ---
ROUNDS Pt is resting in bed with both eyes closed, with visible chest rise and fall with non-labored breathing noted. No signs of acute distress or SOB noted. Safety precautions in place and call light with pt. Will continue to monitor.
[2019-10-22] MEDS: LEVOTHYROXINE SODIUM 0.025 MG TABLET PO SCH (06:12)
--- NOTE | 2019-10-22 06:38 | NUR ---
CLOSING NOTES Pt is resting in bed with both eyes closed, with visible chest rise and fall with non-labored breathing noted. No complains of pain at this time. No signs of acute distress or SOB noted. All needs attended throughout the shift. Safety precautions maintained with 3 side rails up, wheels locked, bed alarm on and in lowest level. Call light with pt. Will endorse to day shift nurse.
--- NOTE | 2019-10-22 07:25 | NUR ---
CLOSING NOTE Patient resting in the bed. No acute distress. Denied of pain. Skin warm and dry to touch. RIJ Rikki catheter intact with clean and dry dressing, no bleeding noted. Discussed the safety issue, use call light when needs help, and plan of care, verbally understanding. Safety measure maintained. Call light within reached. Bed locked in low position, side rails up. Refused bed alarm, risk and benefit explained, verbally understanding. Will continue to monitor. Addendum: 10/22/19 at 0922 by Briseyda Willis RN NOT CLOSING NOTE SHOULD BE OPENING NOTE
[2019-10-22 07:40] LABS: BASOPHILS % (AUTO) 0.8 % (0.0-2.0); EOSINOPHILS # (AUTO) 0.2 K/uL (0.0-0.4); EOSINOPHILS % (AUTO) 3.8 % (0.0-4.0); HEMATOCRIT 30.2 % (36-48); LYMPHOCYTES # (AUTO) 2.1 K/uL (1.0-5.5); LYMPHOCYTES % (AUTO) 34.2 % (20.5-51.5); MEAN CORPUSCULAR HEMOGLOBIN 28 pg (27-31); MEAN CORPUSCULAR HGB CONC 33 % (32-36); MEAN CORPUSCULAR VOLUME 86 fL (79.0-98.0); MONOCYTES # (AUTO) 0.9 K/uL (0.0-1.0); NEUTROPHILS # (AUTO) 2.9 K/uL (1.8-7.7); NEUTROPHILS % (AUTO) 47.2 % (40.0-70.0); PLATELET COUNT (AUTO) 128 K/uL (130-430); RED BLOOD CELL COUNT(AUTO) 3.52 MIL/uL (4.2-6.2); RED CELL DISTRIBUTION WIDTH 14.2 % (9.0-15.0); WHITE BLOOD COUNT (AUTO) 6.1 K/uL (4.8-10.8)
[2019-10-22 07:50] VITALS: BP_SYST 145
[2019-10-22 07:56] LABS: CALCIUM 7.9 mg/dL (8.4-11.0); CREATININE 3.09 mg/dL (0.55-1.30); PHOSPHORUS 3.1 mg/dL (2.7-4.5); POTASSIUM 4.6 mmol/L (3.5-5.1)
--- NOTE | 2019-10-22 09:16 | NUR ---
REINIER STROUD Received the call from Dr. Kaur with order NPO except med.
[2019-10-22] MEDS: METOCLOPRAMIDE HCL 10 MG TABLET PO SCH ×3 (09:29→20:10)
[2019-10-22] MEDS: CALCIUM CARBONATE/VITAMIN D3 1 TAB TABLET PO SCH ×2 (09:30→20:10)
[2019-10-22] MEDS: GABAPENTIN 300 MG CAPSULE PO SCH ×2 (09:30→20:10)
[2019-10-22] MEDS: FENOFIBRATE NANOCRYSTALLIZED 48 MG TABLET (TRICOR) PO SCH (09:30)
[2019-10-22] MEDS: FERROUS SULFATE 325 MG TABLET.DR PO SCH ×3 (09:30→20:10)
[2019-10-22] MEDS: hydrALAZINE HCL 25 MG TABLET PO SCH ×2 (09:30→20:13)
[2019-10-22] MEDS: amLODIPine BESYLATE 10 MG TABLET PO SCH (09:30)
[2019-10-22] MEDS: PANTOPRAZOLE SODIUM 40 MG TAB PO SCH (09:30)
[2019-10-22] MEDS: traMADol HCL HCL 50 MG TABLET (ULTRAM) PO SCH (09:31)
[2019-10-22] MEDS: DOCUSATE SODIUM 250 MG CAPSULE PO SCH ×2 (09:31→20:10)
--- NOTE | 2019-10-22 11:18 | NUR ---
Discharge Planning: DCP followed up with [facility] (f [phone] p [phone]) [address] [facility] [address] accepting patient corporate receptionist will call to confirm chair time. Addendum: 10/22/19 at 1218 by Katherine Horton DP DCP faxed pt referral to [facility] (f [phone] p [phone]), DCP spoke to Pool patient accepted. DCP spoke to Josep HERNÁNDEZ at [facility], the facility does not provide transportation to and from dialysis. DCP spoke to Susana from [facility] does not do the first visit transportation, once patient has had first visit the facility can help to set up future transport. DCP to confirm chair time. Addendum: 10/22/19 at 1341 by Katherine Horton DP [facility] [address] [facility] [address] Chair Time 11:00am [facility]
--- NOTE | 2019-10-22 11:25 | NUR ---
DP=930 No insulin needed per sliding scale for TR=753 as order. Patient resting in the bed. No acute distress. Remained NPO status per Dr. Kaur. Safety measure maintained. Call light within reached. Continue to monitor.
[2019-10-22 12:50] VITALS: BP_SYST 143
--- NOTE | 2019-10-22 13:30 | NUR ---
ROUND Patient resting in the bed. No acute distress. RIJ Rikki cath intact, no bleeding noted, covered with clean and dry dressing. Safety measure maintained. Call light within reached. Bed locked in low position, side rails up. Continue to monitor.
--- NOTE | 2019-10-22 14:20 | NUR ---
PHYSICAL THERAPY CO-SIGN The Physical Therapy Progress Notes documented by Solar System Installer have been reviewed. Reviewed/Co-Signed by: Forrest Sharif PT Documentation Done by: LOUISE BARR PTA Addendum: 10/22/19 at 1422 by Forrest Sharif PT Amended: Links added.
--- NOTE | 2019-10-22 14:21 | NUR ---
PHYSICAL THERAPY CO-SIGN The Physical Therapy Progress Notes documented by Branch Officer have been reviewed. Reviewed/Co-Signed by: Forrest Sharif PT Documentation Done by: LOUISE BARR PTA Addendum: 10/22/19 at 1422 by Forrest Sharif PT Amended: Links added.
--- NOTE | 2019-10-22 15:27 | NUR ---
XR=464 No insulin needed per sliding scale for YX=828 as order. Patient resting in the bed. No acute distress. Remained NPO status per Dr. Kaur. Safety measure maintained. Call light within reached. Continue to monitor.
[2019-10-22 16:41] VITALS: BP_SYST 134
--- NOTE | 2019-10-22 18:01 | NUR ---
RECEIVED THE CALL FROM CHELSI SILVA TO UPDATE THE CONDITION OF THE PATIENT. REPORTED TO DR. SAMUEL PATIENT ON NPO PER DR. FITCH BUT DR. FITCH STILL NOT HERE TO SEE THE PATIENT YET.
--- NOTE | 2019-10-22 18:35 | NUR ---
OR NURSE CAME TO CHECK PATIENT'S CHART, INFORMED CONSENT NOT SIGN FOR PERMA CATH PLACEMENT DUE TO DR. HICKS NOT GIVE ORDER YET. PER OR NURSE THERE IS A SCHEDULE SURGERY FOR TONIGHT. WILL FOLLOW UP.
--- NOTE | 2019-10-22 18:45 | NUR ---
RECEIVED THE CALL FROM OR NURSE, TOLD THE NURSE THE PATIENT ABLE TO SIGN THE CONSENT BUT NEEDS SOMEONE EXPLAINED IN FAROESE BEFORE SIGNING. PATIENT SPEAKS LIMITED SIERRA LEONEAN.
--- NOTE | 2019-10-22 18:50 | NUR ---
JORGE ALBERTO SILVAMUNDO VISITED Reported to Dr. Sorensen the patient permacath placement not done and the OR nurse come to unit early and stated that schedule surgery for tonight. However, Oh still not see the patient yet. I went with Dr. Sorensen to the patient's room and Dr. Sorensen explained the permacath placement to the patient in American, patient verbally understanding.
--- NOTE | 2019-10-22 18:55 | NUR ---
CLOSING NOTE Patient resting in the bed. No acute distress. Denied of pain. Skin warm and dry to touch. RIJ Rikki catheter intact with clean and dry dressing, no bleeding noted. All needs met. Continue on NPO status. Safety measure maintained. Call light within reached. Bed locked in low position, side rails up. Refused bed alarm, risk and benefit explained, verbally understanding. Will endorse to night nurse.
--- NOTE | 2019-10-22 18:58 | NUR ---
RECEIVED THE CALL FROM OR NURSE AND STATED THAT THE SURGERY WILL POST FOR TOMORROW.
[2019-10-22 20:08] VITALS: BP_SYST 163
[2019-10-22] MEDS: INSULIN GLARGINE 100 UNITS/ML 10 ML VIAL SQ SCH (20:10)
--- NOTE | 2019-10-22 20:15 | NUR ---
ROUNDS All due meds given and pt tolerated well. Pt was given sandwich and jello since pt stated she is hungry. No complains of pain and no signs of acute distress or SOB noted. Safety precautions in place and call light with pt. Will continue to monitor.
--- NOTE | 2019-10-22 20:20 | NUR ---
SEEN BY DR. FITCH Pt seen by Dr. FITCH and informed him that I gave pt food since the surgery was not done and pt states she was hungry, he said it's okay and that he will do the surgery tomorrow morning. Will keep pt on NPO after midnight.
--- NOTE | 2019-10-22 22:42 | NUR ---
ROUNDS Pt's FS blood glucose is 160mg/dl, pt refused insulin and will not be given because pt will be on NPO after midnight. No complains of pain and no signs of acute distress noted. Safety precautions in place and call light with pt. Will continue to monitor.
[2019-10-23 00:28] VITALS: BP_SYST 144
--- NOTE | 2019-10-23 01:55 | NUR ---
ROUNDS Pt is resting in bed with both eyes closed, with visible chest rise and fall with non-labored breathing noted. No complains of pain and no signs of acute distress. Safety precautions in place and call light with pt. Will continue to monitor.
[2019-10-23] MEDS: INSULIN REGULAR, HUMAN 100 UNITS/ML, 10 ML VIAL (humuLIN R) SUBCUT PRN ×3 (03:13→21:57)
--- NOTE | 2019-10-23 03:13 | NUR ---
ROUNDS Pt is resting in bed with both eyes closed, with visible chest rise and fall with non-labored breathing noted. Pt is easily arousable. Checked pt's FS blood glucose and is 97mg/dl, no inulin given per protocol and pt is NPO. No signs of acute distress noted. Safety precautions in place and call light with pt. Will continue to monitor.
[2019-10-23] MEDS: LEVOTHYROXINE SODIUM 0.025 MG TABLET PO SCH (06:16)
--- NOTE | 2019-10-23 06:45 | NUR ---
CLOSING NOTES Pt is resting in bed with both eyes closed, with visible chest rise and fall with non-labored breathing noted. No complains of pain at this time. No signs of acute distress or SOB noted. All needs attended throughout the shift. Safety precautions maintained with 3 side rails up, wheels locked, and bed in lowest level. Call light with pt. Will endorse to day shift nurse.
[2019-10-23 07:52] LABS: BASOPHILS # (AUTO) 0.1 K/uL (0.0-0.2); EOSINOPHILS # (AUTO) 0.2 K/uL (0.0-0.4); EOSINOPHILS % (AUTO) 4.7 % (0.0-4.0); HEMATOCRIT 30.3 % (36-48); LYMPHOCYTES # (AUTO) 1.9 K/uL (1.0-5.5); LYMPHOCYTES % (AUTO) 36.4 % (20.5-51.5); MEAN CORPUSCULAR HEMOGLOBIN 28 pg (27-31); MEAN CORPUSCULAR HGB CONC 33 % (32-36); MEAN CORPUSCULAR VOLUME 86 fL (79.0-98.0); MONOCYTES # (AUTO) 0.7 K/uL (0.0-1.0); MONOCYTES % (AUTO) 13.1 % (1.7-9.3); NEUTROPHILS # (AUTO) 2.3 K/uL (1.8-7.7); NEUTROPHILS % (AUTO) 44.8 % (40.0-70.0); PLATELET COUNT (AUTO) 129 K/uL (130-430); RED BLOOD CELL COUNT(AUTO) 3.52 MIL/uL (4.2-6.2); RED CELL DISTRIBUTION WIDTH 14.6 % (9.0-15.0); WHITE BLOOD COUNT (AUTO) 5.1 K/uL (4.8-10.8)
--- NOTE | 2019-10-23 08:00 | NUR ---
RN INITIAL NOTES RECEIVED PATIENT IN BED ALERT , SPEAKS FILIPINO, WITH BEKAH CATH TO RT IJ, INTACT , MAINTAINED NPO , WILL HAVE PLACEMENT OF TUNNELED HEMODIALYSIS PERMACATHETER TODAY , MAINTAINED NPO, EXPLAINED TO PATIENT , SAFETY ENSURED, NO MEDS GIVEN AT THIS TIME, NPO
[2019-10-23 08:05] LABS: CALCIUM 8.2 mg/dL (8.4-11.0); CREATININE 3.26 mg/dL (0.55-1.30); PHOSPHORUS 3.5 mg/dL (2.7-4.5); POTASSIUM 4.1 mmol/L (3.5-5.1)
[2019-10-23 08:30] VITALS: BP_SYST 145
[2019-10-23] MEDS: PANTOPRAZOLE SODIUM 40 MG TAB PO SCH (09:00)
[2019-10-23] MEDS: CALCIUM CARBONATE/VITAMIN D3 1 TAB TABLET PO SCH ×2 (09:00→21:42)
[2019-10-23] MEDS: traMADol HCL HCL 50 MG TABLET (ULTRAM) PO SCH (09:00)
[2019-10-23] MEDS: GABAPENTIN 300 MG CAPSULE PO SCH ×2 (09:00→21:42)
[2019-10-23] MEDS: amLODIPine BESYLATE 10 MG TABLET PO SCH (09:00)
[2019-10-23] MEDS: METOCLOPRAMIDE HCL 10 MG TABLET PO SCH ×3 (09:00→21:42)
[2019-10-23] MEDS: FERROUS SULFATE 325 MG TABLET.DR PO SCH ×3 (09:00→21:42)
[2019-10-23] MEDS: FENOFIBRATE NANOCRYSTALLIZED 48 MG TABLET (TRICOR) PO SCH (09:00)
[2019-10-23] MEDS: hydrALAZINE HCL 25 MG TABLET PO SCH ×2 (09:00→21:41)
[2019-10-23] MEDS: DOCUSATE SODIUM 250 MG CAPSULE PO SCH ×3 (09:14→21:42)
[2019-10-23] MEDS ORDERED: fentaNYL CITRATE/PF 100 MCG/2 ML AMP IVP PRN ×2 (11:15)
[2019-10-23] MEDS ORDERED: MIDAZOLAM HCL 5 MG/ML VIAL (VERSED) IV ONE (12:15)
[2019-10-23] MEDS ORDERED: LIDOCAINE 1% 10 MG/ML, 20 ML MDV ONE (12:15)
[2019-10-23] MEDS ORDERED: NS 50 ML BAG IV ONE (12:15)
[2019-10-23] MEDS ORDERED: PROPOFOL 200MG/ 20ML VIAL (DIPRIVAN) IV ONE (12:15)
[2019-10-23] MEDS ORDERED: NS IRRIG SOLN 1000 ML IR ONE (12:15)
[2019-10-23] MEDS ORDERED: HEPARIN SODIUM,PORCINE 5000 UNITS/ML VIAL ONE (12:15)
[2019-10-23] MEDS ORDERED: CEFAZOLIN 2 GM IVPB PREMIX 50 ML IV ONE (12:15)
[2019-10-23] MEDS ORDERED: NS 1000 ML IV.SOLN IV ONE (12:15)
--- NOTE | 2019-10-23 13:05 | NUR ---
RETURN FROM SURGERY PATIENT RETURNED FROM SURGERY WITH PLACEMENT OF TUNNELED PERMACATH TO RT IJ DRESSING INTACT WITH SAMLL AMOUNT OF BLOOD STAIN TO THE DRESSING , 5 LBS ON TOP OF THE SURGICAL WOUND ON RT CHEST FOR PRESSURE DRESSING PURPOSES, DIALYSIS [facility]IL[facility]INO CALLED AND WILL START DIALYSIS ANY MOMENT FOR NOW , PATIENT IS ALERT , VERBALLY RESPONSIVE
[2019-10-23] MEDS ORDERED: COMMUNICATION ORDER XX ONE (15:45)
[2019-10-23] MEDS ORDERED: HEPARIN SODIUM,PORCINE 5000 UNITS/ML VIAL SUBCUT SCH (15:45)
[2019-10-23 16:09] VITALS: BP_SYST 156
--- NOTE | 2019-10-23 16:54 | NUR ---
DIALYSIS PATIENT HAD DIALYSIS WITH 2.5 LITER ,TOLERATED AND NO DISTRESS
--- NOTE | 2019-10-23 17:00 | NUR ---
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
--- NOTE | 2019-10-23 17:10 | NUR ---
PAGED DR MORGAN PAGED FOR PATIENT TO VERIFY IF PATIENT TO BE DC , DIALYSIS DONE AND CLEARED WITH DR SAMUEL, AWAITING FOR MD TO CALL BACK
[2019-10-23 17:17] VITALS: BP_SYST 156
--- NOTE | 2019-10-23 17:56 | NUR ---
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
--- NOTE | 2019-10-23 18:30 | NUR ---
Paged Richard Mason.
--- NOTE | 2019-10-23 19:00 | NUR ---
ENDORSEMENT WILL ENDORSED TO NEXT SHIFT CONT CARE . PER DR SAMUEL OK TO DC , FEBRUARY DC LEFT FOOT HL ONCE TO DC , ,PAGED DR MORGAN TO NOTIFY PATIENT CANT GO HOME D/T NO TRANSPORTATION , NEXT SHIFT WILL CONT CARE , PATIENT REFUSED INSULIN BEC SHE IS CARED THAT IT WILL GO DOWN AFTER, ATE HER DINNER
--- NOTE | 2019-10-23 20:00 | NUR ---
received pt in bed v/s and assessment done same stable ,permacath site bleeding ,dressing change done ,meds given
--- NOTE | 2019-10-23 21:50 | NUR ---
PERMACATH DRESSING CHANGE PATIENT'S DRESSING FOR HER NEW PERMACATH IS NOTED TO BE SATURATED IN BLOOD. DRESSING IS CHANGED PER STERILE PROTOCOL, PRESSURE APPLIED, PATIENT TOLERATED WELL. NO SIGNS OF ACTIVE BLEED NOTED. WILL CONTINUE TO MONITOR CLOSELY. PATIENT EDUCATED ON CARE FOR HER NEW PERMACATH AND SHE VERBALIZED BACK UNDERSTANDING.
[2019-10-23] MEDS: INSULIN GLARGINE 100 UNITS/ML 10 ML VIAL SQ SCH (21:55)
--- NOTE | 2019-10-24 | NUR ---
pt in no distress at this time denies pain
--- NOTE | 2019-10-24 04:00 | NUR ---
asleep in no distress perma cath dressing dry and intact
--- NOTE | 2019-10-24 08:00 | NUR ---
RN INITIAL NOTES RECEIVED PATIENT IN BED NOT IN ANY DISTRESS , RESP EVEN AND UNLABORED , PATIENT WITH TUNNELED PERMACATH IN RT CHEST , NO COMPLAIN OF PAIN
[2019-10-24] MEDS: LEVOTHYROXINE SODIUM 0.025 MG TABLET PO SCH (08:40)
[2019-10-24] MEDS: FENOFIBRATE NANOCRYSTALLIZED 48 MG TABLET (TRICOR) PO SCH (08:40)
[2019-10-24] MEDS: PANTOPRAZOLE SODIUM 40 MG TAB PO SCH (08:40)
[2019-10-24] MEDS: METOCLOPRAMIDE HCL 10 MG TABLET PO SCH ×2 (08:40→15:12)
[2019-10-24] MEDS: GABAPENTIN 300 MG CAPSULE PO SCH (08:40)
[2019-10-24] MEDS: CALCIUM CARBONATE/VITAMIN D3 1 TAB TABLET PO SCH (08:40)
[2019-10-24] MEDS: DOCUSATE SODIUM 250 MG CAPSULE PO SCH (08:41)
[2019-10-24] MEDS: amLODIPine BESYLATE 10 MG TABLET PO SCH (08:42)
[2019-10-24] MEDS: traMADol HCL HCL 50 MG TABLET (ULTRAM) PO SCH (08:42)
[2019-10-24] MEDS: hydrALAZINE HCL 25 MG TABLET PO SCH (08:43)
[2019-10-24] MEDS: FERROUS SULFATE 325 MG TABLET.DR PO SCH ×2 (08:45→15:12)
--- NOTE | 2019-10-24 10:00 | NUR ---
DR CATHY PEREZ CAME VISIT ORDERED TO LOWER BS TEST, PATIENT WILL BE DC IN AM ONCE WITH TRANSPORTATION FROM [facility] , PER PATIENT SHANA IS OUT OF SATE Addendum: 10/24/19 at 1526 by Vidhi Don RN AWARE PATIENT STILL NOT DC
--- NOTE | 2019-10-24 12:00 | NUR ---
ROUNDS SLEEPING NO DISTRESS
[2019-10-24 12:06] VITALS: BP_SYST 125; BP_SYST 150
--- NOTE | 2019-10-24 13:23 | NUR ---
Dietitian Recommendations *Recommend: [facility] Renal Standard diet. Please see Nutritional Assessment [facility], RD
--- NOTE | 2019-10-24 15:26 | NUR ---
DR LIZZIE PEREZ VISIT PATIENT AWARE PATIENT STILL HERE , WILL KEEP HL TO LEFT FOOT , TO DC ONCE PATIENT DC BACK TO [facility]
--- NOTE | 2019-10-24 15:54 | NUR ---
Discharge Planning: TRANSPORTATION FOR DIALYSIS Starting 10/26/2019 superintendent distribution at 10:15am at [facility]-be in wheelchair Return transportation leaf size picker at 3:30pm from HD center. Reservation number: [id number] Call the Car- ([phone]) DC transportation for 10/24/19 Door to Door services- will call nurses station with an ETA (can be up to 3 hours from 3:50pm). Reservation number: [phone] Call the Car- ([phone])
--- NOTE | 2019-10-24 16:07 | NUR ---
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
[2019-10-24 16:09] VITALS: BP_SYST 137
[2019-10-24 16:12] VITALS: BP_SYST 113
--- NOTE | 2019-10-24 17:59 | NUR ---
FOLLOW UP WITH TRANSPORT CALLED [facility] TO FOLLOW UP WITH THE RIDE TIME SPOKE WITH SEKOU AND UPDATE OF THE TRANSPORT OF THE PATIENT TO [place]
--- NOTE | 2019-10-24 18:08 | NUR ---
TRANSPORT UPDATE CALLED PER SEKOU FROM [facility] [employer] SHE WILL CALL ANOTHER VENDOR CAR [facility]SPORT THAT WILL PROVIDE TRANSPORT TO THE PATIENT , SEKOU SAID THAT AT HIS TIME ITS BEEN ONLY FOR ABOUT 2 HRS ,AND INFORMED THAT PATIENT SERVICE IS DOOR TO DOOR SERVICE ,ONCE PATIENT IS ALREADY IN THE FACILITY THEY NEED TO CALL THE FACILITY FOR THE ASSIST OF EITHER WHEELCHAIR OR FRONT WHEEL WALKER PATIENT NEEDS. MADE A FOLLOW UP CALL WITH [employer] AND DISCUSSED SAME SITUATION OF WHEELCHAIR ASSIST TO THE CAR THEY WILL PROVIDE THEN WHEN IN [place] THEY NEED TO CALL THE FACILITY WITH THE NUMBER PROVIDED [phone] AND THE STAFF WILL MEET THE PATIENT BY THE DOOR AND WITH THE WHEELCHAIR OR WALKER WHICHEVER THE PATIENT NEEDS . PER [employer] TRANSPORT NAME IS [facility] [employer] CLASS, LAST 4 PLATE NO IS [id number]
--- NOTE | 2019-10-24 19:00 | NUR ---
D/C Patient Patient given medication reconciliation form and D/C instructions. Exit Care provided. Patient verbalized understanding. MD discussed with patient the results and treatment provided. Ambulatory with steady gait for discharge to [facility] asssisted with wheelchair tot he private car and advised roll off driver to call [facility] home when they get there. Patient in stable condition, ID band removed. IV catheter removed, intact and dressing applied, no active bleeding. meds reconcilled and instruction given and copie to patient for the dialysis schedule which will start on Oct 26,per patient she has no famiy to be notified she is self responsible Patient educated on pain management. All belongings sent with patient. Addendum: 10/24/19 at 1937 by Vidhi oDn RN tunneled permacath to rt chest intact and dressing intact, no bleeding
== END 2019-10-24 19:00 | disposition home health service (06) | DRG 673 ==
LOC: SED 10:50 → STU 15:53 → SMU 10-20 17:41
PROVIDERS: ADMIT Preventive Medicine Preventive Medicine/Occupational Environmental Medicine; ATTEND Preventive Medicine Preventive Medicine/Occupational Environmental Medicine
PROC: 02HV33Z Insertion of Infusion Device into Superior Vena Cava, Percutaneous Approach (ICD-10-PCS; principal; 2019-10-19)
PROC: B548ZZA Ultrasonography of Superior Vena Cava, Guidance (ICD-10-PCS; 2019-10-19)
PROC: 5A1D70Z Performance of Urinary Filtration, Intermittent, Less than 6 Hours Per Day (ICD-10-PCS; 2019-10-19)
PROC: 5A1D70Z Performance of Urinary Filtration, Intermittent, Less than 6 Hours Per Day (ICD-10-PCS; 2019-10-21)
PROC: 0JH63XZ Insertion of Tunneled Vascular Access Device into Chest Subcutaneous Tissue and Fascia, Percutaneous Approach (ICD-10-PCS; 2019-10-23)
PROC: 02HV33Z Insertion of Infusion Device into Superior Vena Cava, Percutaneous Approach (ICD-10-PCS; 2019-10-23)
PROC: B518ZZA Fluoroscopy of Superior Vena Cava, Guidance (ICD-10-PCS; 2019-10-23)
PROC: 02PY33Z Removal of Infusion Device from Great Vessel, Percutaneous Approach (ICD-10-PCS; 2019-10-23)
PROC: 5A1D70Z Performance of Urinary Filtration, Intermittent, Less than 6 Hours Per Day (ICD-10-PCS; 2019-10-23)
DX: N17.9 Acute kidney failure, unspecified (principal); E43 Unspecified severe protein-calorie malnutrition; I13.11 Hypertensive heart and chronic kidney disease without heart failure, with stage 5 chronic kidney disease, or end stage renal disease; I42.9 Cardiomyopathy, unspecified; Z68.41 Body mass index [BMI] 40.0-44.9, adult; E11.649 Type 2 diabetes mellitus with hypoglycemia without coma; K21.9 Gastro-esophageal reflux disease without esophagitis; D64.9 Anemia, unspecified; D72.819 Decreased white blood cell count, unspecified; E83.51 Hypocalcemia; D63.8 Anemia in other chronic diseases classified elsewhere; E78.5 Hyperlipidemia, unspecified; E66.01 Morbid (severe) obesity due to excess calories; E03.9 Hypothyroidism, unspecified; E11.42 Type 2 diabetes mellitus with diabetic polyneuropathy; M81.0 Age-related osteoporosis without current pathological fracture; E11.22 Type 2 diabetes mellitus with diabetic chronic kidney disease; D69.6 Thrombocytopenia, unspecified; N18.6 End stage renal disease; E11.65 Type 2 diabetes mellitus with hyperglycemia; Z99.2 Dependence on renal dialysis; Z99.3 Dependence on wheelchair; Z79.899 Other long term (current) drug therapy; Z71.3 Dietary counseling and surveillance
CPT/HCPCS: 36415; 71045; 76000; 76770; 80048; 80053; 80074; 82575-TC; 82962; 83036; 83735-TC; 84100-TC; 84156; 84443-TC; 84484; 85007; 85025; 85027; 86580; 87081; 90935; 90937; 93005; 93306; 94010; 97110-GP; 97116-GP; 99285; C1750; G0378; J0690; J1170; J1644; J1815; J2001; J2250; J2405; J2704; J7030; J8597; Q0163